=== PATIENT | male | born 1975 ===

== ENCOUNTER 2018-02-10 13:24 | Emergency (ER) | payer MEDICAID, OTHER ==
[2018-02-10] MEDS ORDERED: Naloxone 0.4 mg/ml Inj (Adult) ONE (13:30)
[2018-02-10 13:37] VITALS: TEMP 97.3
[2018-02-10 15:49] VITALS: RESP 18
--- NOTE | 2018-02-10 17:26 | C.PDOC ---
History Of Present Illness 42 year old male is brought in by EMS after being found unconscious at his mother's house [employer]. As per family, who is present in the ED, patient was found unconscious in the bathroom with a heroin needle in his arm. Patient has a history of heroin abuse. Time Seen by Provider: 02/10/18 13:39 Chief Complaint (Nursing): Substance Abuse History Per: Family History/Exam Limitations: clinical condition Onset/Duration Of Symptoms: Hrs Current Symptoms Are (Timing): Still Present Modifying Factor(s): Other (heroin) Past Medical History Reviewed: Historical Data, Nursing Documentation, Vital Signs Vital Signs: Last Vital Signs Temp 97.3 F L 02/10/18 13:33 Pulse 83 02/10/18 15:47 Resp 18 02/10/18 15:47 BP 107/69 02/10/18 15:47 Pulse Ox 96 02/10/18 15:47 - Medical History PMH: Asthma, Bipolar Disorder, Depression, Hyperlipidemia, Schizophrenia, Seizures Denies: Chronic Kidney Disease Surgical History: No Surg Hx - [facility] Procedures GROUP PSYCHOTHERAPY (02/28/15) MEDICATION MANAGEMENT (02/28/15) Family History: States: No Known Family Hx - Social History Hx Alcohol Use: No Hx Substance Use: Yes - Immunization History Hx Tetanus Toxoid Vaccination: No Hx Influenza Vaccination: No Hx Pneumococcal Vaccination: No Review Of Systems Review Of Systems: ROS cannot be obtained secondary to pt's inabilty to answer questions. Physical Exam - Physical Exam Appears: Well, Non-toxic, Other (arousable with painful stimuli) Skin: Normal Color, Warm, Dry Head: Atraumatic, Normacephalic Eye(s): bilateral: Other (pupils pinpoint) Nose: Normal Oral Mucosa: Moist Neck: Normal, Supple Chest: Symmetrical, No Tenderness Cardiovascular: Rhythm Regular, No Murmur Respiratory: Normal Breath Sounds, No Rales, No Rhonchi, No Wheezing Gastrointestinal/Abdominal: Soft, No Tenderness, No Guarding, No Rebound Extremity: Normal ROM Neurological/Psych: Oriented x3 ED Course And Treatment O2 Sat by Pulse Oximetry: 96 (RA) Pulse Ox Interpretation: Normal Disposition - Disposition Referrals: [facility] [Outside] [facility] [Outside] Disposition: HOME/ ROUTINE Disposition Time: 18:20 Condition: IMPROVED Additional Instructions: NAJMA BEVERLY, thank you for letting us take care of you today. Your provider was Mike Williamson DO and you were treated for SUBSTANCE ABUSE. The emergency medical care you received today was directed at your acute symptoms. If you were prescribed any medication, please fill it and take as directed. It may take several days for your symptoms to resolve. Return to the Emergency Department if your symptoms worsen, do not improve, or if you have any other problems. Please contact your doctor or call one of the physicians/clinics you have been referred to that are listed on the Patient Visit Information form that is included in your discharge packet. Bring any paperwork you were given at discharge with you along with any medications you are taking to your follow up visit. Our treatment cannot replace ongoing medical care by a primary care provider outside of the emergency department. Thank you for allowing the [facility] team to be part of your care today. Follow up with your primary care doctor or the clinic this week for outpatient care. Instructions: Drug Abuse and Drug Addiction (DC) Forms: [employer] (Guamanian) - Clinical Impression Clinical Impression: Drug abuse - Scribe Statement The provider has reviewed the documentation as recorded by the Scribe (Terrence Lopez) Provider Attestation: All medical record entries made by the Scribe were at my direction and personally dictated by me. I have reviewed the chart and agree that the record accurately reflects my personal performance of the history, physical exam, medical decision making, and the department course for this patient. I have also personally directed, reviewed, and agree with the discharge instructions and disposition.
[2018-02-10 18:10] VITALS: BP 113/74; PULSE 87
[2018-02-11 08:22] VITALS: O2SAT 96
== END 2018-02-10 18:25 | disposition home or self-care (01) ==
LOC: C.ER 13:24
DX: F19.10 Other psychoactive substance abuse, uncomplicated (principal); E78.5 Hyperlipidemia, unspecified; F20.9 Schizophrenia, unspecified; F31.9 Bipolar disorder, unspecified